=== PATIENT | male | born 1960 | race Caucasian/White ===

== ENCOUNTER 2024-04-20 05:21 | Day surgery (SDC) | payer BC ==
[~2024-04-20 05:21] MED LIST: Dextrose 5%-0.45% NaCl 1,000 ML IV SCH
[2024-04-20] MEDS: Sodium Chloride 0.9% 1,000 ML IV SCH (05:46)
[2024-04-20] MEDS ORDERED: Midazolam 1 MG/ML 2 ML SDV ONE (06:13)
[2024-04-20] MEDS ORDERED: fentaNYL 100 MCG/2 ML SDV IV ONE (06:13)
[2024-04-20] MEDS ORDERED: fentaNYL 100 MCG/2 ML SDV ONE (06:13)
[2024-04-20] MEDS ORDERED: Midazolam 1 MG/ML 2 ML SDV IV ONE (06:13)
[2024-04-20] MEDS: fentaNYL 100 MCG/2 ML SDV IV ONE ×2 (06:25)
[2024-04-20] MEDS: Midazolam 1 MG/ML 2 ML SDV IV ONE ×4 (06:26→06:38)
== END 2024-04-20 08:30 | disposition home or self-care (01) ==
LOC: DL.ENDO 05:21
PROVIDERS: ATTEND Internal Medicine Gastroenterology
DX: Z12.11 Encounter for screening for malignant neoplasm of colon (principal); R19.5 Other fecal abnormalities; K63.5 Polyp of colon; K64.4 Residual hemorrhoidal skin tags; K64.8 Other hemorrhoids; I10 Essential (primary) hypertension; I48.91 Unspecified atrial fibrillation
CPT/HCPCS: J2250; J3010; J7030